=== PATIENT | female | born 1960 | race Caucasian/White ===

== ENCOUNTER → 2017-11-02 | Outpatient (CLI) | payer MEDICAID ==
[2017-11-02 09:28] LABS: Basophils # (A) 0.1 k/uL (0-0.2); Basophils % (A) 1 %; Eosinophils # (A) 0.2 k/uL (0-0.7); Eosinophils % (A) 5 %; HCT 40.9 % (34.0-46.0); HGB 13.1 gm/dL (11.4-16.0); Lymphocytes # (A) 1.8 k/uL (1.0-4.8); Lymphocytes % (A) 43 %; MCH 31.6 pg (25.0-35.0); MCHC 31.9 g/dL (31.0-37.0); Monocytes # (A) 0.2 k/uL (0-1.0); Monocytes % (A) 5 %; Neutrophils # (A) 1.8 k/uL (1.3-7.7); Neutrophils % (A) 43 %; Platelet Count 250 k/uL (150-450); RBC 4.13 m/uL (3.80-5.40); RDW 13.2 % (11.5-15.5); WBC 4.2 k/uL (3.8-10.6)
[2017-11-02 09:42] LABS: Albumin 4.4 g/dL (3.5-5.0); Cholesterol 203 mg/dL (<200); Glucose 94 mg/dL (74-99); Triglycerides 87 mg/dL (<150)
[2017-11-02 09:43] LABS: ALT 27 U/L (9-52); AST 20 U/L (14-36); Alkaline Phosphatase 103 U/L (38-126); Anion Gap 10 mmol/L; Blood Urea Nitrogen 17 mg/dL (7-17); Calcium 9.8 mg/dL (8.4-10.2); Carbon Dioxide 29 mmol/L (22-30); Chloride 105 mmol/L (98-107); HDL Cholesterol 67 mg/dL (40-60); LDL Cholesterol,Calculated 119 mg/dL (0-99); Potassium 4.3 mmol/L (3.5-5.1); Sodium 144 mmol/L (137-145); Total Bilirubin 0.6 mg/dL (0.2-1.3)
[2017-11-02 15:34] LABS: Erythrocyte Sedimentation Rate 8 mm/hr (0-20)
[2017-11-02 17:28] LABS: Hemoglobin A1C 5.4 % (4.0-6.0)
== END | disposition home or self-care (01) ==
LOC: LABWHC1 09:01
PROVIDERS: ATTEND Family Medicine
DX: Z00.00 Encounter for general adult medical examination without abnormal findings (principal); I10 Essential (primary) hypertension
CPT/HCPCS: 36415; 80053; 80061; 83036; 84443; 85025; 85652; 86431

== ENCOUNTER → 2017-11-02 | Outpatient (CLI) | payer MEDICAID ==
--- NOTE | 2017-11-02 09:58 | XR ---
EXAMINATION TYPE: XR wrist complete LT DATE OF EXAM: 11/02/2017 CLINICAL HISTORY: Pain per order. Lateral cyst with pain per patient. TECHNIQUE: Frontal, lateral, scaphoid, and oblique images of the left wrist are obtained. COMPARISON: None FINDINGS: There is no acute fracture/dislocation evident in the left wrist. Mild joint space loss a nd spurring base of first metacarpal noted. The joint spaces in the left wrist otherwise appear withi n normal limits. The overlying soft tissue appears unremarkable. IMPRESSION: There is mild degenerative change base of first metacarpal.
--- NOTE | 2017-11-02 10:00 | XR ---
EXAMINATION TYPE: XR lumbosacral spine min 4V DATE OF EXAM: 11/02/2017 CLINICAL HISTORY: Pain per order. TECHNIQUE: Frontal, lateral, and oblique images of the lumbar spine are obtained. COMPARISON: Lumbar spine x-ray April 05, 2013 FINDINGS: There are 5 lumbar type vertebral bodies redemonstrated. The lumbar spine shows satisfact ory alignment without evidence of acute fracture or dislocation. Vertebral body heights and disk spac e heights are within normal limits. Mild multilevel anterior spurring is again seen. The oblique yudelka ges appear within normal limits. Some vascular calcification overlying soft tissue is seen in the abd ominal aorta. IMPRESSION: Mild multilevel spurring. No significant change from prior x-ray.
== END | disposition home or self-care (01) ==
LOC: RADXRMAIN 09:15
PROVIDERS: ATTEND Family Medicine
DX: M25.78 Osteophyte, vertebrae (principal); M25.532 Pain in left wrist
CPT/HCPCS: 72110

== ENCOUNTER → 2018-06-01 | Outpatient (CLI) | payer MEDICAID ==
--- NOTE | 2018-06-05 10:01 | MM ---
Reason for exam: screening (asymptomatic). Last mammogram was performed 5 years and 7 months ago. Physical Findings: A clinical breast exam by your physician is recommended on an annual basis and results should be correlated with mammographic findings. MG Screening Mammo w CAD Bilateral CC and MLO view(s) were taken. Prior study comparison: October 19, 2012, bilateral digital screening mammo w/CAD. October 22, 2010, mammogram, performed at [facility]. The breast tissue is heterogeneously dense. This may lower the sensitivity of mammography. Stable benign calcifications. There is no discrete abnormality. No significant changes when compared with prior studies. ASSESSMENT: Benign, BI-RAD 2 RECOMMENDATION: Routine screening mammogram of both breasts in 1 year.
== END | disposition home or self-care (01) ==
LOC: RADMAMWWP 09:02
PROVIDERS: ATTEND Family Medicine
DX: Z12.31 Encounter for screening mammogram for malignant neoplasm of breast (principal)
CPT/HCPCS: 77067

== ENCOUNTER → 2019-04-18 | Outpatient (CLI) | payer MEDICAID ==
[2019-04-18 09:31] LABS: Basophils # (A) 0.1 k/uL (0-0.2); Basophils % (A) 2 %; Eosinophils # (A) 0.2 k/uL (0-0.7); Eosinophils % (A) 6 %; HCT 38.6 % (34.0-46.0); HGB 12.5 gm/dL (11.4-16.0); Lymphocytes # (A) 1.5 k/uL (1.0-4.8); Lymphocytes % (A) 37 %; MCH 31.2 pg (25.0-35.0); MCHC 32.4 g/dL (31.0-37.0); MCV 96.1 fL (80.0-100.0); Mean Platelet Volume 7.5; Monocytes # (A) 0.2 k/uL (0-1.0); Monocytes % (A) 5 %; Neutrophils # (A) 1.9 k/uL (1.3-7.7); Neutrophils % (A) 49 %; Platelet Count 219 k/uL (150-450); RBC 4.01 m/uL (3.80-5.40); RDW 12.9 % (11.5-15.5)
[2019-04-18 18:01] LABS: African American GFR (CKD) 117.3 (60.0-200.0); Albumin 4.2 g/dL (3.80-4.90); Albumin/Globulin Ratio 2.47 (1.60-3.17); Anion Gap 4.5 mmol/L (4.00-12.00); BUN/Creat Ratio 23.33 Ratio (12.00-20.00); Calcium 9.1 mg/dL (8.7-10.3); Carbon Dioxide 27.5 mmol/L (21.6-31.8); Globulin 1.7 g/dL (1.6-3.3); LDL Cholesterol,Calculated 112.6 mg/dL (0.0-131.0); Potassium 4.4 mmol/L (3.5-5.5); Total Bilirubin 0.9 mg/dL (0.2-1.2); Total Protein 5.9 g/dL (6.2-8.2); VLDL Calculation 14.4 mg/dL (5.00-40.00)
[2019-04-18 19:04] LABS: Hemoglobin A1C 5.7 % (4.0-6.0)
== END | disposition home or self-care (01) ==
LOC: LABWHC1 08:43
PROVIDERS: ATTEND Family Medicine
DX: Z00.00 Encounter for general adult medical examination without abnormal findings (principal)
CPT/HCPCS: 36415; 80053; 80061; 82306; 83036; 84443; 85025

== ENCOUNTER → 2020-07-01 | Outpatient (CLI) | payer MEDICAID ==
[2020-07-01 07:32] LABS: MCH 31.5 pg (25.0-35.0); MCHC 32.5 g/dL (31.0-37.0); MCV 96.9 fL (80.0-100.0); Mean Platelet Volume 7.9; Platelet Count 200 k/uL (150-450); RBC 4.13 m/uL (3.80-5.40); RDW 12.3 % (11.5-15.5); WBC 4.4 k/uL (3.8-10.6)
[2020-07-01 07:38] LABS: Appearance,Urine Clear (Clear); Bilirubin,Urine Negative (Negative); Blood,Urine Negative (Negative); Color,Urine Yellow; Glucose,Urine (UA) Negative (Negative); Ketones,Urine Negative (Negative); Leukocyte Esterase,Urine Negative (Negative); Nitrite,Urine Negative (Negative); Protein,Urine Negative (Negative); Specific Gravity,Urine 1.015 (1.001-1.035); Urobilinogen,Urine <2.0 mg/dL (<2.0)
[2020-07-01 11:01] LABS: African American GFR (CKD) 94.2 (60.0-200.0); Albumin 4.4 g/dL (3.80-4.90); Albumin/Globulin Ratio 2.44 (1.60-3.17); Anion Gap 6.5 mmol/L (4.00-12.00); BUN/Creat Ratio 18.75 Ratio (12.00-20.00); Calcium 9.2 mg/dL (8.7-10.3); Carbon Dioxide 29.5 mmol/L (21.6-31.8); Chol/HDL Ratio 3.38; Globulin 1.8 g/dL (1.6-3.3); LDL Cholesterol,Calculated 115.8 mg/dL (0.0-131.0); Non-African American GFR(CKD) 81.3 (60.0-200.0); Potassium 4.4 mmol/L (3.5-5.5); Total Bilirubin 0.8 mg/dL (0.3-1.2); Total Protein 6.2 g/dL (6.2-8.2); VLDL Calculation 17.2 mg/dL (5.00-40.00)
[2020-07-01 11:45] LABS: Erythrocyte Sedimentation Rate 10 mm/Hr (0-30)
[2020-07-01 12:50] LABS: Hemoglobin A1C 5.7 % (4.0-6.0)
[2020-07-03 11:20] LABS: ANA Pattern Homogeneous
== END | disposition home or self-care (01) ==
LOC: LABWHC1 06:59
PROVIDERS: ATTEND Family Medicine
DX: I10 Essential (primary) hypertension (principal); N39.0 Urinary tract infection, site not specified; Z79.899 Other long term (current) drug therapy
CPT/HCPCS: 36415; 80053; 80061; 81003; 82306; 83036; 84443; 85027; 85652; 86038; 86039

== ENCOUNTER → 2020-07-29 | Outpatient (CLI) | payer MEDICAID ==
[2020-07-29 08:49] VITALS: BP 112/79; PULSE 102; RESP 18; TEMP 98.5
--- NOTE | 2020-07-29 09:29 | P.HPOB ---
History of Present Illness H&P Date: 07/29/20 Chief Complaint: The patient is here for her routine gynecologic exam. This is a 60-year-old with an LMP of 2003. She is here to establish with this office. It has been more than 5 years since her last pelvic exam. She is status post vaginal hysterectomy for benign reasons. She believes she went through the menopausal change in 2015 because of hot flashes which are improved but not completely gone. She is otherwise without complaints. Review of Systems The patient's weight has been stable over the last year. She denies respiratory, cardiac, or G.I. problems. 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 History of Any Multi-Drug Resistant Organisms: None Reported Past Surgical History: Adenoidectomy, Hysterectomy, Tonsillectomy Additional Past Surgical History / Comment(s): Vaginal hysterectomy 2003. Past Psychological History: No Psychological Hx Reported Smoking Status: Current every day smoker (Half a pack per day) Past Alcohol Use History: None Reported Past Drug Use History: None Reported Additional History: She is and 1990. She lives with her current partner and they have been together since approximately 2014. She is sexually active. She is a nurse at [employer]. - Past Family History Father Family Medical History: Cancer Additional Family Medical History / Comment(s): Cutaneous lymphoma. Mother Family Medical History: CVA/TIA, Myocardial Infarction (HI) Additional Family Medical History / Comment(s): No known family history of cancer of the breast, uterus, ovaries, or colon. Medications and Allergies Home Medications Medication Instructions Recorded Confirmed Type No Known Home Medications 07/29/20 07/29/20 History Allergies Allergy/AdvReac Type Severity Reaction Status Date / Time amoxicillin Allergy Rash/Hives Verified 07/29/20 08:45 Penicillins Allergy Nausea & Unverified 07/29/20 08:45 Vomiting tetracycline Allergy Nausea & Unverified 07/29/20 08:45 Vomiting Exam Vital Signs Temp Pulse Resp BP Pulse Ox 07/29/20 08:46 98.5 F 102 H 18 112/79 99 Intake and Output 07/28/20 07/29/20 07/29/20 22:59 06:59 14:59 Other: Weight 54.885 kg Height 5 feet 1 inch, weight 121 pounds, BMI 22.9. This is a well-developed well-nourished white female who is alert and oriented times 3 in no acute distress. HEENT: Within normal limits. NECK: Supple without mass or thyromegaly. CHEST AND LUNGS: Clear to auscultation. HEART: Regular rate and rhythm. BREASTS: Are without mass or discharge. AXILLARY EXAM: Negative for adenopathy. BACK: Negative for CVA tenderness. ABDOMEN: Soft, nontender, without palpable masses. PELVIC EXAM: External genitalia appears normal with mild atrophy. Vagina appears normal with mild atrophy. There is no evidence of prolapse. Bimanual examination is negative for mass or tenderness. RECTAL EXAM: Rectovaginal exam is negative for mass or tenderness and is negative for occult blood. EXTREMITIES: Nontender. IMPRESSION: 1. 60-year-old menopausal female status post vaginal hysterectomy for benign reasons, with normal gynecologic exam. 2. Tobacco smoker. PLAN: 1. Pap smears have been discontinued. 2. Self breast awareness was discussed with the patient. 3. Screening mammogram is due. The order slip was given to the patient for this. She states she has an appointment next month for this. 4. Osteoporosis prevention was discussed. I have stressed the importance of adequate calcium, vitamin D and regular exercise. Recommended amounts of calcium and vitamin D were also discussed. 5. The patient states she is in the process of scheduling a colonoscopy. She recently had a Cologuard Test done through her PCP which was positive. The colonoscopy is being scheduled with Dr. Antonio. 6. We have discussed many reasons why I am recommending that she try to quit smoking. 7. She was advised to return in one year for her annual well woman exam.
== END | disposition home or self-care (01) ==
LOC: WWCWWP 08:33
PROVIDERS: ATTEND Obstetrics & Gynecology
DX: Z53.9 Procedure and treatment not carried out, unspecified reason (principal)

== ENCOUNTER → 2022-06-09 | Outpatient (CLI) | payer MEDICAID ==
[2022-06-09 15:14] LABS: Basophils # (A) 0.04 X 10*3/uL (0.00-0.10); Basophils % (A) 0.8 %; Eosinophils # (A) 0.14 X 10*3/uL (0.04-0.35); Eosinophils % (A) 2.8 %; HCT 38.4 % (37.2-46.3); Immature Grans, Automated 0 %; Lymphocytes # (A) 1.66 X 10*3/uL (0.90-5.00); Lymphocytes % (A) 33.3 %; MCHC 33.9 g/dL (32.0-37.0); MCV 94.6 fL (80.0-97.0); Mean Platelet Volume 11.5 fL (9.5-12.2); Monocytes # (A) 0.35 X 10*3/uL (0.20-1.00); NRBC Per 100 WBC 0 /100 WBCS (0.0-0.0); Neutrophils # (A) 2.79 X 10*3/uL (1.80-7.70); Neutrophils % (A) 56.1 %; Platelet Count 270 X 10*3/uL (140-440); RBC 4.06 X 10*6/uL (4.10-5.20); RDW 12.9 % (11.5-14.5); WBC 4.98 X 10*3/uL (4.50-10.00)
[2022-06-09 17:52] LABS: Erythrocyte Sedimentation Rate 22 mm/Hr (0-30)
[2022-06-09 19:41] LABS: ALT 20 U/L (8-44); AST 24 U/L (13-35); African American GFR (CKD) 113.5 (60.0-200.0); Albumin 4.5 g/dL (3.8-4.9); Albumin/Globulin Ratio 2.03 (1.60-3.17); Alkaline Phosphatase 131 U/L (41-126); BUN/Creat Ratio 23.15 Ratio (12.00-20.00); Blood Urea Nitrogen 14.4 mg/dL (9.0-27.0); Calcium 9.6 mg/dL (8.7-10.3); Carbon Dioxide 22.5 mmol/L (20.0-27.5); Chloride 106 mmol/L (96-109); Chol/HDL Ratio 3.65 Ratio; Globulin 2.2 g/dL (1.6-3.3); Glucose 87 mg/dL (70-110); LDL Cholesterol,Calculated 141.3 mg/dL (0.0-131.0); Non-African American GFR(CKD) 97.9 (60.0-200.0); Potassium 4.1 mmol/L (3.5-5.5); Rheumatoid Factor, Qnt <10 IU/mL (0-15); Sodium 140 mmol/L (135-145); Total Protein 6.7 g/dL (6.2-8.2)
== END | disposition home or self-care (01) ==
LOC: LABWHC1 10:40
PROVIDERS: ATTEND Family Medicine
DX: I10 Essential (primary) hypertension (principal); Z79.899 Other long term (current) drug therapy
CPT/HCPCS: 36415; 80053; 80061; 83036; 84443; 85025; 85652; 86431

== ENCOUNTER → 2024-02-07 | Outpatient (CLI) | payer MEDICAID ==
[2024-02-07 14:50] LABS: HCT 40.7 % (37.2-46.3); HGB 13.3 g/dL (12.0-15.0); MCH 32.4 pg (27.0-32.0); MCHC 32.7 g/dL (32.0-37.0); MCV 99.3 FL (80.0-97.0); Mean Platelet Volume 11.6 FL (9.5-12.2); NRBC Per 100 WBC 0 X 10*3/uL (0.00-0.01); Platelet Count 243 X 10*3/uL (140-440); RDW 12.7 % (11.5-14.5); WBC 4.09 X 10*3/uL (4.50-10.00)
[2024-02-07 16:22] LABS: ALT 11 U/L (8-44); AST 23 U/L (13-35); Albumin 4.2 g/dL (3.8-4.9); Albumin/Globulin Ratio 1.83 Ratio (1.60-3.17); Alkaline Phosphatase 121 U/L (41-126); BUN/Creat Ratio 18.29 Ratio (12.00-20.00); Blood Urea Nitrogen 12.8 mg/dL (9.0-27.0); Calcium 9.3 mg/dL (8.7-10.3); Carbon Dioxide 23.7 mmol/L (21.6-31.8); Chloride 106 mmol/L (96-109); Chol/HDL Ratio 3.76 Ratio; Follicle Stimulating Hormone 74.9 mIU/mL; Globulin 2.3 g/dL (1.6-3.3); Glucose 90 mg/dL (70-110); LDL Cholesterol,Calculated 122.9 mg/dL (0.0-131.0); Potassium 4.3 mmol/L (3.5-5.5); Sodium 141 mmol/L (135-145); Total Bilirubin 0.6 mg/dL (0.3-1.2); Total Protein 6.5 g/dL (6.2-8.2)
== END | disposition home or self-care (01) ==
LOC: LABWHC1 07:04
PROVIDERS: ATTEND Family Medicine
DX: Z00.00 Encounter for general adult medical examination without abnormal findings (principal)
CPT/HCPCS: 36415; 80053; 80061; 82672; 83001; 83036; 84403; 84443; 85027

== ENCOUNTER → 2024-09-17 | Outpatient (CLI) | payer MEDICAID ==
--- NOTE | 2024-09-17 22:07 | MM ---
Reason for Exam: Screening (asymptomatic). Last mammogram was performed 6 year(s) and 4 month(s) ago. Patient History: Menarche at age 16. First Full-Term at age 25. Hysterectomy at age 47. Maternal cousin had breast cancer. Risk Values: Johnna 5 year model risk: 1.2%. NCI Lifetime model risk: 5.7%. Prior Study Comparison: 10/22/2010 Screening Mammogram, [facility]. 10/19/2012 Bilateral Screening Mammogram, [facility]. 06/01/2018 Bilateral Screening Mammogram, [facility]. Tissue Density: The breasts are heterogeneously dense, which may obscure small masses. Findings: Analyzed By CAD. The pattern is symmetrical. Scattered benign calcifications are present No suspicious groups of microcalcifications, spiculated or lobular masses, architectural distortion or other secondary signs of malignancy are mammographically apparent. Overall Assessment: Benign, BI-RAD 2 Management: Screening Mammogram of both breasts in 1 year. A negative mammogram report should not preclude additional follow up of suspicious palpable abnormalities. Patient should continue monthly self breast exam. A clinical breast exam by your physician is recommended on an annual basis and results should be correlated with mammographic findings. Note on Johnna scores and lifetime risk: 1. A Johnna score greater than 3% is considered moderate risk. If this is the case, consider specialist referral to assess eligibility for a risk reducing agent. 2. If overall lifetime risk for the development of breast cancer is 20% or higher, the patient may qualify for future screening with alternating mammogram and breast MRI. [facility], , 09/17/2024 10:04 PM. Electronically signed and approved by: Grayson Carey D.O. Radiologis
== END | disposition home or self-care (01) ==
LOC: RADMAMWWP 09:22
PROVIDERS: ATTEND Family Medicine
DX: Z12.31 Encounter for screening mammogram for malignant neoplasm of breast (principal); Z80.3 Family history of malignant neoplasm of breast; R92.333 Mammographic heterogeneous density, bilateral breasts
CPT/HCPCS: 77063; 77067